=== PATIENT | female | born 1995 | race Asian ===

== ENCOUNTER 2016-09-09 09:38 | Outpatient (CLI) | payer BC ==
[~2016-09-09] VITALS: Ht 162.6 cm; Wt 72.3 kg
[2016-09-09 10:16] VITALS: BP 127/80; PULSE 76; RESP 18; Ht 162.6 cm; Wt 72.3 kg
--- NOTE | 2016-09-09 12:09 | RADRPT ---
PROCEDURE: US biophysical profile. CLINICAL INDICATION: Ruptured membranes. TECHNIQUE: Multiple sonographic images of the uterus were obtained. The images were revi ewed on a PACS workstation. COMPARISON: No prior studies are available for comparison. FINDINGS: There is a single live intrauterine gestation. heart rate is 144 beats per minute. The position is cephalic. The placenta is posterior grade III with no abruption or previa. The RADHA is 10.3 cm. (Normal = 5-20 cm.) Breathing Movement: 2 Gross Body Movement: 2 Tone: 2 Qualitative Amniotic Fluid Volume: 2 TOTAL: 8 IMPRESSION: 1. The biophysical score is 8/8. RPTAT: QQ .Smooth Rodney MD, MD Date Time Electronically viewed and signed by .Smooth Rodney MD, on 09/09/2016 12:08 .R/
--- NOTE | 2016-09-09 12:15 | RADRPT ---
PROCEDURE: US OB. CLINICAL INDICATION: Ruptured membranes. TECHNIQUE: Multiple sonographic images of the uterus were obtained. The images were revi ewed on a PACS workstation. COMPARISON: No prior studies are available for comparison. FINDINGS: There is a single live intrauterine gestation. heart rate is 150 beats per minute. Measurements were made in order to determine age. The results are as follows: BPD = 9.33 cm. HC = 33.47 cm. AC = 34.94 cm. FL = 6.99 cm. Estimated weight is 3368 +/- 505 grams. LMP growth percentile is 44 %. Menstrual age by ultrasound dates is 37 weeks 5 days. The estimated date of delivery is 09/25/2016. Position is cephalic and placenta is posterior grade III. There is no evidence for an abruption or p lacenta previa. IMPRESSION: 1. Single live intrauterine gestation of 37 weeks 5 days menstrual age by ultrasound dates. 2. The estimated date of delivery is 09/25/2016. RPTAT: QQ .Smooth Rodney MD, Date Time Electronically viewed and signed by .Smooth Rodney MD, on 09/09/2016 12:15 .R/
[2016-09-09] MEDS ORDERED: PRENAT PO (13:46)
--- NOTE | 2016-09-09 14:10 | CONS ---
Date/Time of Note Date/Time of Note DATE: 09/09/16 TIME: 14:03 Consultation Date/Type/Reason Admit Date/Time September 09, 2016 OB triage consult Reason for Consultation This patient is a 20 years old primigravida with estimated date of confinement of September 16, 2016 which makes her 39 weeks and 0 days now. She came to the triage mostly complaining of possible spontaneous rupture of membrane since about 7:00 in the morning In reviewing her record her course was basically normal, her GBS was positive, immune to rubella ,chlamydia and gonorrhea hepatitis B surface antigen and HIV RPR were all negative. Blood type a positive. On examination; she is a well-developed well-nourished lady at term . Her general vital signs are basically normal; blood pressure of 121/86, pulse rate of 76, respiration 18, and temperature of 98.9, Laboratory Tests Test 09/09/16 11:00 Membranes Rupture NEGATIVE On pelvic examination her cervix was basically closed to half a centimeter, about 40% effaced ,head at -3 station ,intact membrane Eyes: No discharge, No no complaints, No other, No pain, No redness, No visual change ENT: No bleeding, No congestion, No discharge, No dysphagia, No no complaints, No other, No pain, No sore throat Respiratory: No cough, No no complaints, No other, No pain, No pleuritic pain, No shortness of breath, No sputum, No wheezing Cardiovascular: No chest pain, No edema, No lightheadedness, No no complaints, No orthopenea, No other, No palpitations, No paroxysmal nocturnal dyspnea Gastrointestinal: other (As I mentioned her cervix was basically closed 40% -3 station no evidence of rupture of membrane), No blood, No constipation, No decreased appetite, No diarrhea, No flatus, No nausea, No no complaints, No pain, No passing stool, No vomiting Genitourinary: No bleeding, No discharge, No dysuria, No flank pain, No hematuria, No no complaints, No other Musculoskeletal: No back pain, No bone/joint pain, No neck pain, No no complaints, No other, No restricted range of motion, No swelling Skin: No bruising, No erythema, No laceration, No no complaints, No other, No pruritis, No rash, No skin lesions Neurologic: No confusion, No dizziness, No focal-weakness, No headache, No no complaints, No other, No seizure, No syncope Endocrine: No dry skin, No no complaints, No other, No polydypsia, No polyuria , No temp intolerance Additional Comments On ultrasound study the report was a single live intrauterine with heart rate of 144 bpm in vertex presentation ,placenta was posterior grade ,3 amniotic fluid index was reported 10.3 cm with biophysical profile of 8 8. The estimated weight was 3368 g 505 g by LMP and this finding it is about 44 percentile growth. Estimated delivery date was September 25, 2016 Disposition ;with these finding patient was reassured to the fact that she did not have rupture membrane and she was discharged home with instruction to return to the hospital in case of bleeding ,evidence of rupture of membrane or in labor .other than that she will be seeing her Residential Care Officer in her clinic Social History Smoking Status: Former smoker Exam/Review of Systems Vital Signs Vitals Vital Signs Date Time Temp Pulse Resp B/P Pulse Ox O2 Delivery O2 Flow Rate FiO2 09/09/16 10:16 98.9 76 18 127/80 High Flow Results Results 24 hrs Laboratory Tests Test 09/09/16 11:00 Membranes Rupture NEGATIVE PIOTR RODRIGUEZ MD Sep 09, 2016 14:10
--- NOTE | 2016-09-09 17:41 | TRIAGE ---
OB Triage Datetime Report Generated by CPN: 09/09/2016 17:40 Datetime: 09/09/2016 13:39 Stage of : OB Triage Datetime: 09/09/2016 13:38 Labor Evaluation Frequency: 0 Monitor Mode: External Duration (sec)2399: 0 Resting Tone [place]: Relaxed Contraction Comments: uterine irritability Heart Rate FHR Baseline Rate: 135 Monitor Mode: External US Variability: Moderate 6-25 bpm Accelerations: 15X15 Decelerations: None Category: Category I Comments: nst reactive for gestational age Datetime: 09/09/2016 10:22 Assessment Type: Admission Assessment Maternal Assessment Level of Consciousness: Fully Conscious DTR's/Clonus: DTRs 2+; No Clonus Headache: Denies Blurred Vision: No Respiratory Effort: Unlabored; Regular Rhythm; Equal Expansion Breath Sounds, Left: Clear and Equal Breath Sounds, Right: Clear and Equal Nausea/Vomiting: Denies RUQ Epigastric Pain: Denies Lower Extremities Edema: None Degree: None Upper Extremities Edema: None Degree: None Facial Edema: None Fall Risk Assessment History of Falling: (0) No Secondary Diagnosis: (0) No Ambulatory Aid: (0) Bedrest/Nurse Assist IV Therapy: (0) No Gait: (0) Normal/Bedrest/Immobile Mental Status: (0) Oriented to Own Ability Fall Score: 0 Fall Risk Score Definition: No Risk: No action required Datetime: 09/09/2016 10:20 Time of Arrival: 09/09/2016 09:35 EGA: 39.0 Arrived By: Ambulatory Arrived From: Home Chief Complaint: SROM AT 0745 Movement: Present Contractions: Irregular Time Contractions Began: 09/09/2016 07:45 Rupture of Membranes: Unsure Vaginal Bleeding: None Vaginal Discharge: Denies Recent Sexual Intercouse: Denies Abdominal Trauma: Not Applicable Patient Complaints: Contractions; Cramping Time Provider Notified: 09/09/2016 10:50 Provider Notified: abuseleme Initial Plan: nst, efw, dmitry Datetime: 09/09/2016 10:00 Stage of : OB Triage Assessment Type: Triage Maternal Assessment Level of Consciousness: Fully Conscious DTR's/Clonus: DTRs 2+; No Clonus Headache: Denies Blurred Vision: No Respiratory Effort: Unlabored; Regular Rhythm; Equal Expansion Breath Sounds, Left: Clear and Equal Breath Sounds, Right: Clear and Equal Nausea/Vomiting: Denies RUQ Epigastric Pain: Denies Lower Extremities Edema: None Degree: None Upper Extremities Edema: None Degree: None Facial Edema: None Temperature Route: Axillary Fall Risk Assessment History of Falling: (0) No Secondary Diagnosis: (0) No Ambulatory Aid: (0) Bedrest/Nurse Assist IV Therapy: (0) No Gait: (0) Normal/Bedrest/Immobile Mental Status: (0) Oriented to Own Ability Fall Score: 0 Fall Risk Score Definition: No Risk: No action required
[2016-09-09 20:20] LABS: BARBITURATES Negative (NEGATIVE); BENZODIAZEPINES Negative (NEGATIVE); CANNABINOIDS Positive (NEGATIVE); COCAINE Negative (NEGATIVE); OPIATES Negative (NEGATIVE)
== END 2016-09-09 13:50 | disposition home or self-care (01) ==
LOC: OBT 09:38 → L-D 09:39 → OBT 13:50
PROVIDERS: ATTEND Obstetrics & Gynecology
DX: O47.1 False labor at or after 37 completed weeks of gestation (principal); Z3A.39 39 weeks gestation of pregnancy
CPT/HCPCS: 76815; 76818; 80307; 84112; Z7500; G0463

== ENCOUNTER 2016-09-12 20:52 | Inpatient (IN) | payer BC ==
[~2016-09-12] VITALS: Ht 162.6 cm; Wt 75.6 kg
[~2016-09-12 20:52] MED LIST: PRENAT PO
[2016-09-12 21:11] VITALS: BP 126/75; PULSE 64; RESP 16; Ht 162.6 cm; Wt 75.6 kg
[2016-09-13] MEDS ORDERED: CARBOPROST 250 MCG INJ IM PRN (01:30)
[2016-09-13] MEDS ORDERED: OXYTOCIN 30 UNITS/LR 500 ML IV PRN (01:30)
[2016-09-13] MEDS ORDERED: AMPICILLIN 2 GM/NS (PMX) 100 ML IV ONE (01:30)
[2016-09-13] MEDS ORDERED: OXYTOCIN 30 UNITS/LR 500 ML IV SCH ×2 (01:30)
[2016-09-13] MEDS ORDERED: ACETAMINOPHEN/CODEINE #3 TAB PO PRN (01:30)
[2016-09-13] MEDS ORDERED: IBUPROFEN 600 MG TAB PO PRN (01:30)
[2016-09-13] MEDS ORDERED: LIDOCAINE 1% (MPF) 30 ML INJ INJ PRN (01:30)
[2016-09-13] MEDS ORDERED: MISOPROSTOL 200 MCG TAB PR PRN (01:30)
[2016-09-13] MEDS ORDERED: BUTORPHANOL 2 MG INJ IV PRN (01:30)
[2016-09-13] MEDS ORDERED: METHYLERGONOVINE 0.2 MG INJ IM PRN (01:30)
[2016-09-13] MEDS: LACTATED RINGER'S 1,000 ML IV SCH ×4 (01:43→21:30)
[2016-09-13 02:24] LABS: BASOPHILS % 0.5 % (0.0-2.0); EOSINOPHILS # 0.1 10^3/ul (0.0-0.5); EOSINOPHILS % 0.8 % (0.0-7.0); HEMATOCRIT 35.6 % (37.0-47.0); HEMOGLOBIN 12.1 g/dl (12.0-16.0); LYMPHOCYTES # 2.3 10^3/ul (0.8-2.9); LYMPHOCYTES % 26.3 % (15.0-51.0); MEAN CORPUSCULAR VOLUME 94.2 fl (82.0-101.0); MEAN PLATELET VOLUME 9.7 fl (7.4-10.4); MONOCYTES % 11.6 % (0.0-11.0); NEUTROPHIL # 5.1 10^3/ul (1.6-7.5); NEUTROPHILS % 59.4 % (39.0-77.0); PLATELET COUNT 287 10^3/UL (140-415); RED BLOOD COUNT 3.78 10^6/ul (4.20-5.40); RED CELL DISTRIBUTION WIDTH 13.2 % (11.5-14.5); WHITE BLOOD COUNT 8.5 10^3/ul (4.8-10.8)
[2016-09-13 02:53] LABS: INR 0.92; PROTIME 12.4 Sec (12.2-14.2)
[2016-09-13 02:54] LABS: PARTIAL THROMBOPLASTIN TIME 26.4 Sec (25.0-35.0)
[2016-09-13 02:57] LABS: BARBITURATES Negative (NEGATIVE); BENZODIAZEPINES Negative (NEGATIVE); CANNABINOIDS Positive (NEGATIVE); COCAINE Negative (NEGATIVE); OPIATES Negative (NEGATIVE)
[2016-09-13] MEDS: OXYTOCIN 30 UNITS/LR 500 ML IV SCH (03:39)
[2016-09-13] MEDS ORDERED: LACTATED RINGER'S 1,000 ML IV PRN (04:00)
[2016-09-13] MEDS: AMPICILLIN 1 GM/NS (PMX) 50 ML IV SCH ×5 (05:58→21:39)
--- NOTE | 2016-09-13 10:55 | HP ---
Date/Time of Note Date/Time of Note DATE: 09/13/16 TIME: 10:47 OB - History Hx of Present Free Text/Dictation admitted for labor pain Last Menstrual Period: Nov 19, 2015 Estimated Due Date: Sep 16, 2016 : 1 Care: None Ultrasounds: Normal mid trimester US Obstetrical Complications: None Medical Complications: None Past Family/Social History * Past Medical, Surgical, Family and Obstetric Histories reviewed from chart. Blood Type: O+ Rubella: immune RPR/VDRL: Negative GBS Status: Negative HBsAG: Negative OB Admission Exam Vital Signs Vital Signs Vital Signs Date Time Temp Pulse Resp B/P Pulse Ox O2 Delivery O2 Flow Rate FiO2 09/12/16 21:11 98.4 64 16 126/75 Room Air Physical Exam HEENT: WNL Heart: Rhythm Normal Lungs: Clear, Equal Abdomen: WNL Extremities: Normal Reflexes: Normal Cervical Dilatation: 1cm Effacement: 75% Station: -2 Membranes: Intact Heart Rate: 120's Accelerations: Accelerations Present Varibility: Marked Contractions on Admission: None Intensity: Moderate Last 72 hours Lab Results CBC & BMP 09/13/16 01:34 OB Assessment/Plan Reason for admission: active labor Other Assessment: admitted for delivery SALVATORE WHYTE MD Sep 13, 2016 10:55
[2016-09-13] MEDS ORDERED: FENTAnyl 2MCG/ML-ROPIV 0.2% 100 ML ONE (19:16)
[2016-09-13] MEDS ORDERED: NALOXONE (0.4 MG/ML) INJ IV PRN (21:30)
[2016-09-14] MEDS: AMPICILLIN 1 GM/NS (PMX) 50 ML IV SCH ×6 (01:45→21:03)
[2016-09-14] MEDS: FENTAnyl 2MCG/ML-ROPIV 0.2% 100 ML BAG EPI SCH ×3 (01:55→18:00)
[2016-09-14] MEDS: LACTATED RINGER'S 1,000 ML IV SCH ×3 (03:13→23:12)
[2016-09-14] MEDS: DEXTROSE 5%-LR 1,000 ML IV SCH (06:22)
[2016-09-14] MEDS: OXYTOCIN 30 UNITS/LR 500 ML IV SCH (08:30)
[2016-09-15] MEDS: AMPICILLIN 1 GM/NS (PMX) 50 ML IV SCH ×5 (00:48→17:34)
[2016-09-15] MEDS: FENTAnyl 2MCG/ML-ROPIV 0.2% 100 ML BAG EPI SCH ×4 (02:10→20:34)
[2016-09-15] MEDS: LACTATED RINGER'S 1,000 ML IV SCH ×2 (09:09→16:10)
--- NOTE | 2016-09-15 10:17 | PN ---
Date/Time of Note Date/Time of Note DATE: 09/15/16 TIME: 10:09 OB Subjective Subjective Subjective Patient came Thursday nit with early labor epidural anesthesia was given and augmentation of labor since admission. she had GBS positive for which she had been on ampicillin iv. Balloon induction was tried yesterday. baby is tolerating the procedure well. now she is at 6 cm dilated. very high in the pelvis, balloon was removed and ROM was done WITH CLEAR FLUID. baby's head is very high still at -3. we will try turning her on her side for a possible engagement of the head. OB Objective HEENT: WNL Heart: Rhythm Normal Lungs: Clear, Equal Abdomen: WNL Extremities: Normal Reflexes: Normal Cervical Dilatation: 6cm Effacement: 100% Station: -3 Amniotic Fluid: Clear Heart Rate: 120's Accelerations: Accelerations Present Varibility: Moderate Contractions on Admission: < 5 Minutes Apart Intensity: Moderate SALVATORE WHYTE MD Sep 15, 2016 10:17
[2016-09-15 11:37] LABS: ADD UMIC YES; UR ASCORBIC ACID NEGATIVE (NEGATIVE); UR BILIRUBIN (Dip) NEGATIVE (NEGATIVE); UR BLOOD (Dip) 1+ mg/dL (NEGATIVE); UR CLARITY CLEAR (CLEAR); UR COLOR YELLOW (YELLOW); UR GLUCOSE (Dip) NEGATIVE (NEGATIVE); UR KETONES (Dip) 2+ mg/dL (NEGATIVE); UR LEUKOCYTE ESTERASE (Dip) NEGATIVE Leu/ul (NEGATIVE); UR NITRITE (Dip) NEGATIVE (NEGATIVE); UR RBC 4 /HPF (0-5); UR SPECIFIC GRAVITY (Dip) 1.012 (1.003-1.030); UR TOTAL PROTEIN (Dip) NEGATIVE (NEGATIVE); UR UROBILINOGEN (Dip) 1+ mg/dL (NEGATIVE)
[2016-09-15 11:58] LABS: BASOPHILS % 0.2 % (0.0-2.0); EOSINOPHILS % 0.2 % (0.0-7.0); HEMATOCRIT 34.7 % (37.0-47.0); HEMOGLOBIN 11.7 g/dl (12.0-16.0); LYMPHOCYTES # 1.1 10^3/ul (0.8-2.9); LYMPHOCYTES % 12.7 % (15.0-51.0); MEAN CORPUSCULAR HGB CONC 33.7 g/dl (32.0-37.0); MEAN CORPUSCULAR VOLUME 94.8 fl (82.0-101.0); MEAN PLATELET VOLUME 9.2 fl (7.4-10.4); MONOCYTE # 0.8 10^3/ul (0.3-0.9); MONOCYTES % 9.3 % (0.0-11.0); NEUTROPHIL # 6.5 10^3/ul (1.6-7.5); PLATELET COUNT 217 10^3/UL (140-415); RED BLOOD COUNT 3.66 10^6/ul (4.20-5.40); RED CELL DISTRIBUTION WIDTH 13.1 % (11.5-14.5); WHITE BLOOD COUNT 8.4 10^3/ul (4.8-10.8)
[2016-09-15 12:05] LABS: ALBUMIN 3.1 g/dl (3.3-4.9); ALBUMIN/GLOBULIN RATIO 1.14; BILIRUBIN,INDIRECT 0.7 mg/dl (0-1.1); BILIRUBIN,TOTAL 0.7 mg/dl (0.2-1.3); CALCIUM 8.7 mg/dl (8.4-10.2); CREATININE 0.6 mg/dl (0.44-1.00); POTASSIUM 3.7 mmol/L (3.5-5.1); TOTAL PROTEIN 5.8 g/dl (6.1-8.1); URIC ACID 4.3 mg/dl (3.1-7.9)
[2016-09-15 12:09] LABS: INR 1.07; PROTIME 13.9 Sec (12.2-14.2); PT RATIO 1.1
[2016-09-15 12:20] LABS: PARTIAL THROMBOPLASTIN TIME 28.4 Sec (25.0-35.0)
[2016-09-15] MEDS ORDERED: MINERAL OIL LIGHT 10 ML VIAL TOP ONE (18:30)
[2016-09-15] MEDS: OXYTOCIN 30 UNITS/LR 500 ML IV SCH (19:44)
[2016-09-16 00:15] VITALS: BP 137/68; PULSE 71; RESP 18
[2016-09-16] MEDS ORDERED: WITCH HAZEL/GLYCERIN PAD PR PRN (01:00)
[2016-09-16] MEDS ORDERED: OXYTOCIN 30 UNITS/LR 500 ML IV ONE (01:00)
[2016-09-16] MEDS ORDERED: BENZOCAINE 20% 56 ML SPRAY TOP PRN (01:00)
[2016-09-16 04:48] VITALS: BP 119/70; PULSE 73; RESP 18
[2016-09-16] MEDS: DEXTROSE 5%-LR 1,000 ML IV SCH ×3 (06:30→06:50)
[2016-09-16] MEDS: LACTATED RINGER'S 1,000 ML IV SCH ×2 (06:49→06:51)
[2016-09-16] MEDS: AMPICILLIN 1 GM/NS (PMX) 50 ML IV SCH ×3 (06:49→09:30)
[2016-09-16 08:30] VITALS: BP 119/67; PULSE 67; RESP 17
[2016-09-16 12:00] VITALS: BP 123/70; PULSE 65; RESP 16
[2016-09-16 14:18] LABS: BASOPHILS % 0.2 % (0.0-2.0); EOSINOPHILS # 0.1 10^3/ul (0.0-0.5); EOSINOPHILS % 0.3 % (0.0-7.0); HEMOGLOBIN 10.9 g/dl (12.0-16.0); LYMPHOCYTES # 1.6 10^3/ul (0.8-2.9); LYMPHOCYTES % 10.7 % (15.0-51.0); MEAN CORPUSCULAR HEMOGLOBIN 32.1 pg (29.0-33.0); MEAN CORPUSCULAR HGB CONC 34.1 g/dl (32.0-37.0); MEAN CORPUSCULAR VOLUME 94.1 fl (82.0-101.0); MEAN PLATELET VOLUME 9.5 fl (7.4-10.4); MONOCYTE # 1.5 10^3/ul (0.3-0.9); MONOCYTES % 10.3 % (0.0-11.0); NEUTROPHIL # 11.3 10^3/ul (1.6-7.5); NEUTROPHILS % 77.8 % (39.0-77.0); PLATELET COUNT 201 10^3/UL (140-415); RED CELL DISTRIBUTION WIDTH 13.2 % (11.5-14.5); WHITE BLOOD COUNT 14.5 10^3/ul (4.8-10.8)
[2016-09-16 16:00] VITALS: BP 120/74; PULSE 69; RESP 17
--- NOTE | 2016-09-16 20:56 | LDN ---
Date/Time of Note Date/Time of Note DATE: 09/15/16 Delivery Summary Weeks of Gestation 39.5 weeks gestation, admitted in labor in the evening of 09/12/16 she was in pain at 1 cm dilatation 50 % effacement.with irregular contractions. an epidural was given early and an augmentation of her labor was given. She had a very slow progress and the contractions were not so effective. A catheter with 80 cc of fluid for inserted for induction in the cervix. Finally she had reached a dilatation that allowed ROM and she delivered vaginally spontaneously without complications on 09/15 She was GBS positive and she received several doses of ampicillin. Placenta Delivered: Spontaneously Meconium: none Episiotomy: No Anesthesia type: Epidural Estimated blood loss: 200 Sponge & Needle done & correct: Yes All needle counts correct: Yes Any foreign bodies felt in the: No Problems: Delivery Information Sex Sex: female Apgars 1 Minute: 9 5 Minute: 9 Suctioning Nose & mouth suctioned at estrellita: Yes Umbilical Cord Umbilical cord with: 3 Vessels Cord presentations: no nuchal cord Cord Blood was obtained: Yes Mother & Baby Disposition Disposition Mom & Baby to Maternity; Good: Yes SALVATORE WHYTE MD Sep 16, 2016 20:54
--- NOTE | 2016-09-16 20:59 | PN ---
Date/Time of Note Date/Time of Note DATE: 09/16/16 TIME: 20:56 OB Subjective Subjective Subjective Doing well, feels good. breast feeding. uterus contracted. lochia normal. afebrile. OB Objective HEENT: WNL Heart: Rhythm Normal Lungs: Clear, Equal Abdomen: WNL Extremities: Normal Reflexes: Normal SALVATORE WHYTE MD Sep 16, 2016 20:59
[2016-09-16 21:00] VITALS: BP 126/77; PULSE 65; RESP 18
[2016-09-17 04:00] VITALS: BP 125/64; PULSE 60; RESP 18
[2016-09-17 08:45] VITALS: BP 114/58; PULSE 59; RESP 16
--- NOTE | 2016-09-17 10:43 | PD.PPDC ---
TRADING ANALYST Discharge Instruction Condition Patient Condition: Good Diet Diet: Resume Regular Diet Activity/Restrictions Activity: Normal Activity May Shower Restrictions: No Exercising No Lifting No Driving No Sexual Activity Nothing in the Vagina No [place] No Tampons, douche Follow-up Follow-up with Physician: 6 Return to clinic for CASING IN LINE FEEDER Instructions: Fever greater than 101 Chills Worsening abdominal pain Excessive Vaginal Bleeding More than 2 pads per hour Unable to tolerate diet OB Instructions: Breast Tenderness Depression Blurried Vision Headache Surgical Instructions: Incisional Drainage Incisional Redness SALVATORE WHYTE MD Sep 17, 2016 10:43
--- NOTE | 2016-09-17 10:44 | DS ---
Date/Time of Note Date/Time of Note DATE: 09/17/16 TIME: 10:44 Obstetrical Discharge Record Final Diagnosis Final Diagnosis: Term delivered Vaginal Delivery Obstetrical Delivery: Spontaneous Complications Augmentation: Yes Condition on Discharge Physical Assessment Voiding: Yes Bowel Movement: Yes Breast: Soft, non-tender, Filling Fundus: Firm Calf Tenderness: No Patient Condition: Good SALVATORE WHYTE MD Sep 17, 2016 10:44
[2016-09-17 10:45] LABS: BASOPHIL # 0.1 10^3/ul (0.0-0.1); BASOPHILS % 0.5 % (0.0-2.0); EOSINOPHILS # 0.2 10^3/ul (0.0-0.5); EOSINOPHILS % 2.1 % (0.0-7.0); HEMATOCRIT 33.7 % (37.0-47.0); HEMOGLOBIN 11.1 g/dl (12.0-16.0); LYMPHOCYTES # 1.4 10^3/ul (0.8-2.9); LYMPHOCYTES % 14.9 % (15.0-51.0); MEAN CORPUSCULAR HGB CONC 32.9 g/dl (32.0-37.0); MEAN CORPUSCULAR VOLUME 94.1 fl (82.0-101.0); MEAN PLATELET VOLUME 9.7 fl (7.4-10.4); MONOCYTE # 0.9 10^3/ul (0.3-0.9); MONOCYTES % 9.5 % (0.0-11.0); NEUTROPHIL # 6.7 10^3/ul (1.6-7.5); NEUTROPHILS % 72.3 % (39.0-77.0); PLATELET COUNT 193 10^3/UL (140-415); RED BLOOD COUNT 3.58 10^6/ul (4.20-5.40); RED CELL DISTRIBUTION WIDTH 13.5 % (11.5-14.5); WHITE BLOOD COUNT 9.2 10^3/ul (4.8-10.8)
== END 2016-09-17 17:57 | disposition home or self-care (01) | DRG 775 ==
LOC: OBT 20:52 → L-D 20:52 → OBT 09-13 01:15 → L-D 09-13 01:17 → PP1 09-16 01:01
PROVIDERS: ADMIT Obstetrics & Gynecology; ATTEND Obstetrics & Gynecology
PROC: 10E0XZZ Delivery of Products of Conception, External Approach (ICD-10-PCS; principal; 2016-09-15)
PROC: 3E033VJ Introduction of Other Hormone into Peripheral Vein, Percutaneous Approach (ICD-10-PCS; 2016-09-15)
DX: O80 Encounter for full-term uncomplicated delivery (principal); Z37.0 Single live birth; Z3A.39 39 weeks gestation of pregnancy
CPT/HCPCS: 62319; 80053; 80307; 81001; 84560; 85025; 85610; 85730; 86592; 86900; 86901; 99464; G0463; J0290; J2590; J3010; J7120; J7121